=== PATIENT | female | born 1975 | race Caucasian/White ===

== ENCOUNTER 2021-01-09 16:34 | Emergency (ER) | payer OTHER, SELFPAY ==
[2021-01-09 16:48] VITALS: BP 144/81; PULSE 130; RESP 20; TEMP 37.2; O2SAT 96; BMI 29.2
--- NOTE | 2021-01-09 16:54 | XR_ITS ---
PROCEDURE INFORMATION: Exam: XR Right Ankle Exam date and time: 01/09/2021 4:54 PM Age: 45 years old Clinical indication: Pain; Ankle; Right; Additional info: Injury TECHNIQUE: Imaging protocol: XR Right ankle. Views: 3 or more views. COMPARISON: No relevant prior studies available. FINDINGS: Bones/joints: No acute fracture or dislocation. Ankle mortise is intact. Normal bone mineralization. Soft tissues: Lateral ankle soft tissue swelling. IMPRESSION: Lateral soft tissue swelling.
--- NOTE | 2021-01-09 16:54 | XR_ITS ---
PROCEDURE INFORMATION: Exam: XR Right Foot Exam date and time: 01/09/2021 4:54 PM Age: 45 years old Clinical indication: Pain; Foot; Right; Additional info: Injury TECHNIQUE: Imaging protocol: XR Right foot. Views: 3 or more views. COMPARISON: No relevant prior studies available. FINDINGS: Bones/joints: No acute fracture or dislocation. Small calcaneal spur. Joint spaces are preserved. Normal bone mineralization. Soft tissues: Mild dorsal foot soft tissue swelling. IMPRESSION: Mild dorsal soft tissue swelling.
[2021-01-09 16:56] VITALS: BP 144/81; PULSE 130; RESP 20; TEMP 37.2; O2SAT 96
--- NOTE | 2021-01-09 17:00 | HMH.EDUTC ---
[facility] [place]ression: Right foot sprain Qualifiers: Encounter type: initial encounter Qualified Code(s): S93.601A - Unspecified sprain of right foot, initial encounter Right ankle sprain Qualifiers: Encounter type: initial encounter Involved ligament of ankle: unspecified ligament Qualified Code(s): S93.401A - Sprain of unspecified ligament of right ankle, initial encounter Disposition: Home, Self-Care Condition on Discharge: Good Instructions: DI for Ankle Sprain, DI for Foot Sprain Additional Instructions: Rest the extremity, Wear the tucker wrap for compression, Elevate the extremity as tolerated while you are resting. Take ibuprofen for pain. I sent in a prescription to your pharmacy. Follow up with Dr. Cowan (podiatry). I put in a referral but you need to call his office and schedule an appointment. Follow up with your regular doctor. GO TO THE ER FOR ANY WORSENING SYMPTOMS Prescriptions: Ibuprofen [Ibuprofen 600mg Tablet] 600 mg PO Q6HP PRN #30 tab PRN Reason: Mild Pain Transmission Status: Received by [id number] Referrals: Tej Matias [Primary Care Provider] - Time of Disposition: 17:57 Medical Decision Making - Medical Records Medical records reviewed: No: I reviewed the patient's medical records. - [place] Inquiry Pt receiving controlled substance: No Vital Signs: 01/09/21 16:48 01/09/21 16:56 Temperature 99.0 F 99.0 F Temperature Source Oral Pulse Rate 130 H Pulse Rate [Left] 130 H Respiratory Rate 20 20 Blood Pressure 144/81 H Blood Pressure [Right Arm] 144/81 H Blood Pressure Mean [Right Arm] 102 02 Sat by Pulse Oximetry 96 [facility] [place] - General Stated complaint: injured R foot fell two week ago Time Seen by Provider: 01/09/21 17:00 Mode of Arrival: Ambulatory Source of Information: Patient Limitations: No Limitations Description of Symptoms (Recalled from Triage Doc. by RN): Pt c/o right foot/ankle swelling, redness and pain. Pt states she hurt it 2 weeks ago and it has progressively gotten worse. HEENT Symptoms (Recalled from RN notes): No Resp Symptoms (Recalled from RN notes): No Skin Symptoms (Recalled from RN notes): Yes MS Symptoms (Recalled from RN notes): Yes Functional Status (Recalled from RN notes): wnl - History of Present Illness Provider Complaint: She states that she twisted her right ankle and foot around 2 weeks ago. She has continued to have pain and swelling of that foot and ankle. - Related Data Previous Rx's Medication Instructions Recorded LORazepam [Ativan 1mg tablet] 1 mg PO TID #15 tab 04/19/19 Ibuprofen [Ibuprofen 600mg 600 mg PO Q6HP PRN #30 tab 01/09/21 Tablet] Allergies Allergy/AdvReac Type Severity Reaction Status Date / Time No Known Allergies Allergy Verified 01/09/21 16:55 - Worker's Comp Is this a Worker's Comp case?: No [facility] History - Hepatitis A Screen Drug use history?: No High risk sexual behaviors?: No History of sexually transmitted infection?: No Currently employed?: No Childcare worker?: No Do you have indoor plumbing?: Yes Do you have electricity?: Yes Attestation statement:: This patient has been screened for Hepatitis A risk factors. I have reviewed the patient's past medical history: Yes Medical History: Denies:: Cancer, Diabetes Mellitus Type 1, Diabetes Mellitus Type 2, MRSA Amputation: No - Social History Smoking Status: Never smoker Alcohol Intake: never Occupational Status: other ROS Obtained: Yes All systems reviewed & no additional complaints - Constitutional Constitutional: Denies chills, Denies fever(s) - Musculoskeletal Musculoskeletal: Reports as per HPI - Integumentary/Breasts Skin/Breast: Denies redness, Denies rash, Denies wounds Physical Exam - General General appearance: alert, in no apparent distress - Head Head exam: atraumatic, normocephalic, normal inspection - Eye Eye exam: Present: normal appearance
== END 2021-01-09 18:16 | disposition home or self-care (01) ==
PROVIDERS: Emergency Provider Nurse Practitioner Family; PCP Pediatrics
DX: S93.601A Unspecified sprain of right foot, initial encounter (principal); S93.401A Sprain of unspecified ligament of right ankle, initial encounter; X50.1XXA Overexertion from prolonged static or awkward postures, initial encounter; Y92.9 Unspecified place or not applicable
CPT/HCPCS: 73610; 73630; 99203; G0463

== ENCOUNTER → 2021-02-10 10:49 | Outpatient (CLI) | payer OTHER, SELFPAY ==
--- NOTE | 2021-02-10 10:49 | MR_ITS ---
PROCEDURE INFORMATION: Exam: MR Right Lower Extremity Joint Without and With Contrast; Ankle Exam date and time: 02/10/2021 10:49 AM Age: 45 years old Clinical indication: Pain; Ankle; Right; Additional info: Right ankle pain/sprain. Medial and lateral RT ankle pain and edema x 1 month with no HX of injury per PT. 15 ml prohance used for contrast lot# [id number] ex 10/2022 prior RT ankle xray donw 01/09/21 TECHNIQUE: Imaging protocol: MR of the Right lower extremity without and with contrast. Exam focused on the ankle. Contrast material: PROHANCE; Contrast volume: 15 ml; Contrast route: IV; COMPARISON: CR XR ANKLE RT MIN 3V 01/09/2021 5:04 PM FINDINGS: Bones and cartilage: Unremarkable. No acute fracture. No significant marrow signal abnormality. A few foci of T2 prolongation within the central talus are likely related to vascular channels. Joint spaces: Trace fluid within the posterior ankle joint, likely within physiologic limits. No significant joint effusion. No erosion. LIGAMENTS: Distal tibiofibular syndesmosis: Unremarkable. No tear. Anterior talofibular ligament: Unremarkable. No tear. Posterior talofibular ligament: Unremarkable. No tear. Calcaneofibular ligament: Unremarkable. No tear. Deltoid ligament complex: Unremarkable. No tear. TENDONS: Tibialis posterior tendon: Trace fluid within the posterior tibialis tendon sheath without overt tenosynovitis. No tear. Peroneal tendons: Mild tenosynovitis of the peroneal tendons. No peroneal tendon tear. Tibialis anterior tendon: There is mild tenosynovitis of the tibialis anterior. No tear. Achilles tendon: Mild Achilles paratenon edema. No significant Achilles tendinosis. No Achilles tendon tear. Tarsal canal (Sinus tarsi): There is abnormal edema and loss of fat signal within the sinus tarsi. There is also patchy post-contrast enhancement. Tarsal tunnel: Unremarkable. Muscles: There is edema/enhancement of the visualized distal tibialis anterior muscle, without intramuscular fluid collection. There is fascial edema/enhancement throughout the ankle. Soft tissues: There is generalized subcutaneous adipose tissue edema throughout the ankle and foot. There is relatively little enhancement of the subcutaneous edema around the ankle, but there is more fairly extensive enhancement of the subcutaneous edema throughout the dorsal foot. No organized/drainable fluid collection. Plantar fascia: Plantar fascia is unremarkable. IMPRESSION: 1. Diffuse subcutaneous and fascial edema/enhancement throughout the ankle and foot. No organized fluid collection. The overall findings are nonspecific, but suggest a generalized inflammatory process. Consider eosinophilic fasciitis. Given history of symptoms present over 1 month, an infectious process is considered less likely. 2. Mild tibialis anterior and peroneal tenosynovitis. 3. Abnormal edema/enhancement within the sinus tarsi, to suggest sinus tarsi syndrome.
== END ==
PROVIDERS: PCP Pediatrics; Visit Provider Podiatrist
DX: S93.401A Sprain of unspecified ligament of right ankle, initial encounter (principal); M25.571 Pain in right ankle and joints of right foot
CPT/HCPCS: 73723; A9576